=== PATIENT | female | born 2000 | race Caucasian/White ===

== ENCOUNTER 2018-07-06 23:21 | Emergency (ER) ==
[2018-07-06] MEDS ORDERED: DIPHENHYDRAMINE HCL 50 MG/ML VIAL IM ONE (23:31)
[2018-07-06] MEDS ORDERED: FAMOTIDINE 20 MG TABLET PO ONE (23:31)
== END 2018-07-07 01:45 | disposition left against medical advice (07) ==
LOC: ER 23:21
DX: Z53.21 Procedure and treatment not carried out due to patient leaving prior to being seen by health care provider (principal)
CPT/HCPCS: J1200

== ENCOUNTER 2019-02-22 16:05 | Outpatient (CLI) | payer MEDICAID ==
--- NOTE | 2019-02-22 18:40 | RADIOLOGY REPORT (SQ) ---
EXAM DESCRIPTION: U/S PROFILE W/O STRESS COMPLETED DATE/TIME: 02/22/2019 5:15 pm REASON FOR STUDY: Nonreactive NST COMPARISON: None. TECHNIQUE: Limited gonzalez-scale realtime and static images of the fetus to measure specified parameter s. LIMITATIONS: None. FINDINGS: HEART RATE: 145 beats per minute. RENATO: 21.5 cm. BREATHING MOVEMENT: 2 points. MOVEMENT: 2 points. POSTURE AND TONE: 2 points. QUALITATIVE RENATO: 2 points. OTHER: No other significant finding. IMPRESSION: BIOPHYSICAL PROFILE: 01/14. COMMENT: BREATHING MOVEMENTS: 2 POINTS: PRESENT 0 POINTS: ABSENT MOTION: 2 POINTS: PRESENT 0 POINTS: ABSENT TONE: 2 POINTS: PRESENT 0 POINTS: ABSENT AMNIOTIC FLUID VOLUME: 2 POINTS: LARGEST POCKET GREATER THAN 2 CM DEPTH. 0 POINTS: NO POCKET OF 2 CM. TECHNICAL DOCUMENTATION: JOB ID: [id number] [employer]- All Rights Reserved Reading location - IP/workstation name: [email or web address]
== END 2019-02-22 18:33 | disposition home or self-care (01) ==
LOC: LC 16:05
PROVIDERS: ATTEND Obstetrics & Gynecology
PROC: 4A1HXCZ Monitoring of Products of Conception, Cardiac Rate, External Approach (ICD-10-PCS; principal; 2019-02-22)
DX: O24.419 Gestational diabetes mellitus in pregnancy, unspecified control (principal); Z3A.30 30 weeks gestation of pregnancy
CPT/HCPCS: 76819

== ENCOUNTER 2019-03-01 15:22 | Outpatient (CLI) | payer MEDICAID ==
[2019-03-01 16:43] LABS: APPEARANCE,URINE SLIGHTLY-CLOUDY; BILIRUBIN,URINE NEGATIVE (NEGATIVE); COLOR,URINE YELLOW; GLUCOSE, URINE >=500 mg/dL (NEGATIVE); KETONES,URINE TRACE mg/dL (NEGATIVE); LEUKOCYTE ESTERASE,URINE LARGE (NEGATIVE); NITRITE,URINE NEGATIVE (NEGATIVE); PROTEIN,URINE NEGATIVE (NEGATIVE); URINE SPECIFIC GRAVITY 1.029; UROBILINOGEN,URINE NEGATIVE mg/dL (<2.0)
[2019-03-01 17:08] LABS: URINE AMPHETAMINES SCREEN NEGATIVE; URINE BARBITURATES SCREEN NEGATIVE; URINE BENZODIAZEPINES SCREEN NEGATIVE; URINE COCAINE SCREEN NEGATIVE; URINE MARIJUANA (THC) SCREEN NEGATIVE; URINE METHADONE SCREEN NEGATIVE; URINE PHENCYCLIDINE SCREEN NEGATIVE
== END 2019-03-01 17:33 | disposition home or self-care (01) ==
LOC: LC 15:22
PROVIDERS: ATTEND Obstetrics & Gynecology
PROC: 4A1HXCZ Monitoring of Products of Conception, Cardiac Rate, External Approach (ICD-10-PCS; principal; 2019-03-01)
DX: O47.03 False labor before 37 completed weeks of gestation, third trimester (principal); Z3A.31 31 weeks gestation of pregnancy
CPT/HCPCS: 59025; 80307; 81001; 82962; 84112